=== PATIENT | male | born 1955 | race Caucasian/White ===

== ENCOUNTER 2018-01-02 17:10 | Observation (INO) ==
--- NOTE | 2018-01-02 17:39 | Emergency Department Note ---
Disposition Clinical Impression: DM hyperosmolarity type II, uncontrolled Disposition: Admitted As Inpatient Condition: Good Time of Disposition: 18:37 General Adult HPI - General Chief complaint: ED General Medical Stated complaint: Hyperglycemia Time Seen by Provider: 01/02/18 17:21 Source: patient Mode of arrival: ambulatory Limitations: no limitations Nursing Notes Reviewed: Yes Vital Signs Reviewed: Yes - History of Present Illness HPI Narrative: No patient presenting to emergency department complaining of hyperglycemia for the past 3 months. He states he does have a history of diabetes. He has not been taking any was medication for the past 2 weeks because he ran out of it. Patient states that he is not compliant with his diet he frequently eats chocolate as well as sugar doughnuts. Patient reports no other medical history. He states he has had a stress test that was negative. Patient denies any chest pain. He states his last episode of chest pain was 10 years ago. He denies any shortness of breath. He does report a mild suprapubic tenderness occasionally. He does have some mild suprapubic tenderness on exam. No right upper quadrant no right lower quadrant abdominal pain. He also reports one episode of emesis yesterday morning. None since. Denies any fevers or chills. - Related Data Home Medications Medication Instructions Recorded Confirmed RX: Multivit-Min/FA/Lycopen/Lutein 1 tab PO DAILY 01/03/18 01/03/18 [A Thru Z Select Multivit Tab] Previous Rx's Medication Instructions Recorded RX: Insulin NPH/REG 70/30 [HumuLIN 30 unit SQ BIDWM 14 Days #3 vial 01/03/18 70/30 VIAL] RX: Potassium Chloride 20 meq PO BID 3 Days #6 tab.er.prt 01/03/18 Allergies Allergy/AdvReac Type Severity Reaction Status Date / Time NSAIDS (Non-Steroidal Allergy Rash Verified 06/09/17 11:34 Anti-Inflamma All systems ED: reviewed and negative except as stated. Review of Systems: As Per HPI Constitutional: Denies: fever, chills Cardiovascular: Denies: chest pain, syncope Respiratory: Denies: cough, dyspnea Gastrointestinal: Reports: abdominal pain (Suprapubic.), vomiting (One episode yesterday nonbloody nonbilious). Denies: nausea, diarrhea Genitourinary: Reports: frequency (Increased). Denies: urgency, dysuria, hematuria Musculoskeletal: Denies: back pain, neck pain Past Medical History - Past Medical History Attestation: Yes The following information was validated with the patient. Source: patient Medical history: Reports: diabetes - Social History Smoking Status: 2nd Hand Smoke Exposure Smokeless Tobacco Status: No Alcohol use: Reports: none Physical Exam - General Limitations: no limitations General appearance: alert, in no apparent distress - Head Head exam: atraumatic, normocephalic, normal inspection - Eye Eye exam: Present: normal appearance, PERRL, EOMI - ENT ENT exam: normal exam, normal oropharynx, mucous membranes moist - Neck Neck exam: Present: normal inspection, full ROM, trachea midline - Chest Chest inspection: Present: normal inspection, symmetric chest wall rise - Respiratory Respiratory exam: Present: normal lung sounds bilaterally. Absent: respiratory distress, accessory muscle use - Cardiovascular Cardiovascular exam: Present: regular rate, normal rhythm, normal heart sounds - Abdominal Exam Abdominal exam: Present: soft, tenderness (Suprapubic to palpation.), other (Patient's abdomen is nondistended not peritoneal.). Absent: distention, guarding, rigidity, organomegaly - Extremities Exam Extremities exam: Present: normal inspection, full ROM, normal capillary refill. Absent: tenderness, pedal edema - Back Exam Back exam: Present: normal inspection, full ROM. Absent: tenderness - Neurological Exam Neurological exam: Present: alert, oriented X3 - Psychiatric Psychiatric exam: Present: normal affect, normal mood - Skin Skin exam: Present: warm, dry, intact, normal color Course Course Narrative: Patient splenic your glucose was noted to be high on our read. He is a known diabetic but has not been taking his medication and is not compliant with his diet. We will get a basic lab workup and anticipate the patient being admitted for possible DKA. We will also get a urinalysis to evaluate for his suprapubic tenderness and increased frequency of urination. He denies any burning on urination. - Reevaluation(s) Reevaluation #1: Patient has a new AK eye. Also has beta hydroxybutyrate acid that is greater than 2. Does not have an osmolar gap. Does have elevated serum osmole is 317. We did provide the patient with 10 units of subcutaneous insulin and 2 L of fluid. We will be admitting for hyperglycemia as well as RASHAD. Time: 18:35 - Consultations Consultation #1: Hospitalist accepted patient in stable condition. Time: 18:43 Vital Signs Temperature 97.7 F 01/02/18 17:12 Pulse Rate 89 01/02/18 17:12 Respiratory Rate 15 01/02/18 17:12 Blood Pressure 145/88 01/02/18 17:12 O2 Sat by Pulse Oximetry 98 01/02/18 17:12 Temperature 97.7 F 01/02/18 17:38 Pulse Rate 86 01/02/18 17:41 Respiratory Rate 16 01/02/18 17:41 Blood Pressure 119/94 01/02/18 17:41 O2 Sat by Pulse Oximetry 98 01/02/18 17:38 Oxygen Delivery Oxygen Delivery Room Air Medical Decision Making - Medical Records Medical records reviewed: Yes I reviewed the patient's medical records. - Lab Data Lab results reviewed: Yes I reviewed the patient's lab results. Result diagrams: 01/03/18 03:38 01/03/18 03:38 Lab Results 01/02/18 01/02/18 01/02/18 Range/Units 17:22 17:22 17:22 WBC 8.3 (4.3-11.1) K/mcL RBC 5.71 H (4.19-5.50) M/mcL Hgb 17.0 H (12.9-16.9) g/dL Hct 49.4 (37.5-50.1) % MCV 86.5 (83.0-100.0) fL MCH 29.8 (28.0-33.3) pg MCHC 34.4 (31.6-35.5) g/dL RDW 12.4 (11.5-14.5) % Plt Count 181 (140-400) K/mcL MPV 10.9 (9.4-12.4) fL Immature Gran % 0.2 (0-4) % Seg Neutrophils % 65.1 % Lymphocytes % 27.5 % Monocytes % 4.7 % Eosinophils % 1.8 % Basophils % 0.7 % Neutrophils # 5.4 (1.6-8.9) K/mcL Lymphocytes # 2.3 (0.6-4.6) K/mcL Monocytes # 0.4 (0.0-1.3) K/mcL Eosinophils # 0.2 (0.0-0.6) K/mcL Basophils # 0.1 (0.0-0.2) K/mcL VBG pH (7.32-7.42) pH Units VBG pCO2 (41-51) mmHg VBG pO2 (25-50) mmHg VBG HCO3 (21-27) mEq/L Sodium 134 L (136-145) mEq/L Potassium 4.1 (3.5-5.1) mEq/L Chloride 100 (98-107) mEq/L Carbon Dioxide 24 (23-29) mEq/L BUN 33 H (8-23) mg/dL Creatinine 1.57 H (0.70-1.30) mg/dL Est GFR ( Amer) 55 L (> 60) Est GFR (Non-Af Amer) 45 L (> 60) BUN/Creatinine Ratio 21 (6-26) Glucose 668 H* (70-105) mg/dL Calculated Osmolality 317 H (280-300) Lactic Acid (0.5-2.2) mmol/L Calcium 8.9 (8.6-10.3) mg/dL Phosphorus 3.2 (2.7-4.5) mg/dL Magnesium 2.4 (1.6-2.6) mg/dL Beta-Hydroxybutyric Acd > 2.00 H (0.02-0.27) mmol/L 01/02/18 01/02/18 Range/Units 17:48 18:09 WBC (4.3-11.1) K/mcL RBC (4.19-5.50) M/mcL Hgb (12.9-16.9) g/dL Hct (37.5-50.1) % MCV (83.0-100.0) fL MCH (28.0-33.3) pg MCHC (31.6-35.5) g/dL RDW (11.5-14.5) % Plt Count (140-400) K/mcL MPV (9.4-12.4) fL Immature Gran % (0-4) % Seg Neutrophils % % Lymphocytes % % Monocytes % % Eosinophils % % Basophils % % Neutrophils # (1.6-8.9) K/mcL Lymphocytes # (0.6-4.6) K/mcL Monocytes # (0.0-1.3) K/mcL Eosinophils # (0.0-0.6) K/mcL Basophils # (0.0-0.2) K/mcL VBG pH 7.37 (7.32-7.42) pH Units VBG pCO2 44 (41-51) mmHg VBG pO2 68 H (25-50) mmHg VBG HCO3 25 (21-27) mEq/L Sodium (136-145) mEq/L Potassium (3.5-5.1) mEq/L Chloride (98-107) mEq/L Carbon Dioxide (23-29) mEq/L BUN (8-23) mg/dL Creatinine (0.70-1.30) mg/dL Est GFR ( Amer) (> 60) Est GFR (Non-Af Amer) (> 60) BUN/Creatinine Ratio (6-26) Glucose (70-105) mg/dL Calculated Osmolality (280-300) Lactic Acid 1.2 (0.5-2.2) mmol/L Calcium (8.6-10.3) mg/dL Phosphorus (2.7-4.5) mg/dL Magnesium (1.6-2.6) mg/dL Beta-Hydroxybutyric Acd (0.02-0.27) mmol/L - Radiology Data Radiology results reviewed: Yes I reviewed the patient's radiology results. - EKG Data EKG #1 EKG attestation: Yes I reviewed and interpreted this EKG. EKG results narrative: Normal sinus rhythm at a rate 83. NC interval is 147. QRS duration is 93. QT is 400. QTC is 470. No signs of acute ischemia. Good R-wave progression. No significant change from previous EKG dated 06/27/2012. Attestation Statement - Attestation Attestation: Resident Attestation: I examined this patient and my medical decision making was reviewed with the Resident Physician. I agree with the documented findings, disposition and treatment plan as described except to the extent set forth below. We independently had [id number] contact with the patient. Patient seen with resident physician Dr. Charlotte Crowe. Please see resident note for further details and disposition. Patient presents with a history of hyperglycemia. He has not been taking his medication for the past 2 weeks. Patient has had significant polydipsia and polyuria. Generalized abdominal pain with an episode of nonbloody nonbilious emesis. No acute distress, abdomen soft nontender palpation without guarding or rebound. Patient found to have significant hyperglycemia as well as hyperosmolality. RASHAD. Not acidotic. Patient will be admitted for further treatment.
[2018-01-02] MEDS: 0.9 % Sodium Chloride 1,000 ML IVC SCH ×3 (17:53→22:52)
[2018-01-02 17:58] LABS: Basophils # 0.1 K/mcL (0.0-0.2); Basophils % 0.7 %; Eosinophils # 0.2 K/mcL (0.0-0.6); Eosinophils % 1.8 %; Hematocrit 49.4 % (37.5-50.1); Immature Granulocytes % 0.2 % (0-4); Lymphocytes # 2.3 K/mcL (0.6-4.6); Lymphocytes % 27.5 %; Mean Corpuscular HGB Conc 34.4 g/dL (31.6-35.5); Mean Corpuscular Hemoglobin 29.8 pg (28.0-33.3); Mean Corpuscular Volume 86.5 fL (83.0-100.0); Mean Platelet Volume 10.9 fL (9.4-12.4); Monocytes # 0.4 K/mcL (0.0-1.3); Monocytes % 4.7 %; Neutrophils # 5.4 K/mcL (1.6-8.9); Platelet Count 181 K/mcL (140-400); Red Blood Count 5.71 M/mcL (4.19-5.50); Red Cell Distribution Width 12.4 % (11.5-14.5); Segmented Neutrophils % 65.1 %
[2018-01-02 18:15] LABS: VBG HCO3 25 mEq/L (21-27); VBG PCO2 44 mmHg (41-51); VBG PH 7.37 pH Units (7.32-7.42); VBG PO2 68 mmHg (25-50)
[2018-01-02 18:20] LABS: Calcium 8.9 mg/dL (8.6-10.3); Magnesium 2.4 mg/dL (1.6-2.6); Phosphorous 3.2 mg/dL (2.7-4.5); Potassium 4.1 mEq/L (3.5-5.1)
[2018-01-02] MEDS ORDERED: Insulin Regular, Human 100 UNIT/ML SQ ONE (18:34)
[2018-01-02 19:06] LABS: Bilirubin,Urine Negative (Negative); Blood,Urine Negative (Negative); Clarity,Urine Clear (Clear); Color,Urine Yellow (Yellow); Glucose,Urine (UA) >=1000 mg/dL (Normal); Ketones,Urine 15 mg/dL (Negative); Leukocyte Esterase,Urine Negative (Negative); Nitrite,Urine Negative (Negative); PH,Urine 5.5 pH Units (5.0-8.0); Protein,Urine Negative (Neg-Trace); Specific Gravity,Urine > 1.030 (1.010-1.025); Urobilinogen,Urine Normal (Normal)
[2018-01-02] MEDS ORDERED: Insulin LISPRO 300 UNITS/3 ML VIAL SQ ONE (19:45)
[2018-01-02] MEDS ORDERED: Naloxone 0.4 MG/ML INJ IVP PRN (21:36)
[2018-01-02] MEDS ORDERED: D5% in Water 1,000 ML IVC PRN (21:47)
[2018-01-02] MEDS ORDERED: *HR* Dextrose 50 % in Water (Syg) 50 ML SYRINGE IVP PRN (21:47)
[2018-01-02] MEDS ORDERED: Dextrose Gel 15 GM/37.5 ML TUBE PO PRN ×2 (21:47)
--- NOTE | 2018-01-02 21:48 | Internal Med History&Physical ---
Addendum entered and electronically signed by Oumar Lawler MD 01/03/18 05:53: I saw and evaluated the patient. I reviewed the residents note, performed my own physical examination and agree with findings and plan as documented in the residents note. Patient seen and examined on 01/02/18. Patient presented with elevated blood sugars, poorly controlled at home. Is not on insulin, but has been on glimepiride. Has not been taking it the past few weeks however. He states that he gets leg cramps and vision changes when his sugars are elevated. Since starting the IV fluids and receiving the insulin, he feels better. We will continue to monitor, and most likely recommend insulin at discharge. Would also benefit from diabetes education as well, but this service is not available at this facility. Original Note: Date of Encounter: 01/03/18 Time of Encounter: 21:36 Internal Medicine - H&P: HPI Chief complaint: hyperglycemia Admitted From: Emergency Dept Plans for Post Hospital Care: Home History of present illness: Mr. Henriquez is a 62 year old male with history of diabetes who presents to the hospital for 3 month history of hyperglycemia. The patient states that he has been having elevated blood glucose for the past 3 months but is been particularly bad over the past couple weeks. He states that he has been noncompliant with his medication because he ran out and has not sought a refill from his primary care physician. He previously was on metformin, however he was unable to tolerate it due to adverse effects and was switched to glimepiride i [facility]. He says over the past several months his blood glucose has never dropped below 300 but over the past couple of weeks and greater than 600 for the most part. As result of this, he says that he has been having dark spots in his vision as well as floaters, as well as severe polyuria and polydipsia. He additionally admits to polyphagia and nausea and vomiting over the past several days. Very concerned about weight loss which has been unplanned in the past couple of weeks. He claims that he has had about 15 pounds of unexpected weight loss in the past 2 weeks. He does admit to feeling chilled but denies fever or night sweats. His review of systems also elicited a general state of c onstipation recently, however he denies blood in his stool or melena. He also had apparently has a personal history of colonic polyps. He has no other acute symptoms at this time. In the ED, the patient was found to have a blood glucose of 668, with a hydroxybutyric acid of >2.0 and without an anion gap. His serum osmolality was 318. His lactic acid was 1.2. He was admitted for workup and management of acute hyperglycemia. Social Hx: Patient lives alone, works in a factory doing packing, denies current tobacco use but is a former smoker, denies EtOH use, denies drug use, admits to poor diet. Surgical Hx: non-contributory Family Hx: Mother had heart disease, father had diabetes Past Med Surg Social Fam HX - Past Medical History Medical history: diabetes Additional medical history: see attached records Psychiatric history: no psych history - Social History Smoking Status: 2nd Hand Smoke Exposure Smokeless Tobacco Status: No Alcohol use: none Drug use: none - Family History Father Hx Family Endocrine Disorder: Yes Internal Medicine - H&P: Meds Magnesium 01/02/18 [History] Potassium 01/02/18 [History] Allergy/AdvReac Type Severity Reaction Status Date / Time NSAIDS (Non-Steroidal Allergy Rash Verified 06/09/17 11:34 Anti-Inflamma All Systems PM: A 10-system review of systems was performed and is negative for pertinent findings except as documented above in the HPI. Review of systems: Constitutional: Denies fevers, generalized fatigue. Admits to chills, 15 pound weight loss in 3 weeks Head/Neck: Denies GALAN, neck stiffness EENT: Denies rhinorrhea, congestion. Admits to sore throat, visual blurriness CVS: Denies chest pain, palpitations, HARO, orthopnea, edema, PND Pulm: Denies SOB, sputum, hemoptysis, wheezing GI: Denies diarrhea, melena, hematemasis. Admits to abdominal pain, and episodes of nausea and vomiting, constipation : Denies dysuria, urgency, hematuria Endo: Admits to polydipsia and polyuria Heme: Denies ease of bleeding or bruising MSK: Denies joint pain, limited ROM Skin: Denies rashes, ulcers, color changes Neuro: Denies GALAN, paresthesias, focal deficits, ataxia - Constitutional Vitals: Temp Pulse Resp BP Pulse Ox 97.7 F 72 16 140/97 98 01/02/18 17:38 01/02/18 20:15 01/02/18 21:21 01/02/18 21:21 01/02/18 17:38 Exam: Gen: Vitals noted. No acute distress. Eyes: anicteric sclerae, moist conjunctivae; no lid-lag; Pupils equal and reactive to light HENT: Atraumatic; oropharynx clear with moist mucous membranes and no mucosal ulcerations; normal hard and soft palate Neck: Trachea midline; supple, no thyromegaly or lymphadenopathy Cardiac: RRR, no murmur, +S1/S2 Pulmonary: CTA bilaterally, no wheezes, rales or rhonchi, equal chest expansion Abdomen: soft, mild tenderness to palpation especially in suprapubic region, no guarding. No masses or hepatosplenomegaly MSK: ROM intact, no joint swelling noted Extremities: no BLE edema, nontender calf, no cyanosis or clubbing Skin: Normal temperature, turgor and texture; no rash, ulcers or subcutaneous nodules Neuro: moves all extremities, no focal deficits. Psych: Appropriate mood and behavior. A&Ox3 Internal Med - H&P Results - Labs CBC & Chem 7: 01/03/18 03:38 01/03/18 03:38 Labs: Short CBC 01/02/18 Range/Units 17:22 WBC 8.3 (4.3-11.1) K/mcL Hgb 17.0 H (12.9-16.9) g/dL Hct 49.4 (37.5-50.1) % Plt Count 181 (140-400) K/mcL Neutrophils # 5.4 (1.6-8.9) K/mcL BMP 01/02/18 17:22 Sodium 134 L Potassium 4.1 Chloride 100 Carbon Dioxide 24 BUN 33 H Creatinine 1.57 H Glucose 668 H* Calcium 8.9 Urine 01/02/18 Range/Units 18:55 Urine Color Yellow (Yellow) Urine Clarity Clear (Clear) Urine pH 5.5 (5.0-8.0) pH Units Ur Specific [place] > 1.030 H (1.010-1.025) Urine Protein Negative (Neg-Trace) mg/dL Urine Glucose (UA) >=1000 H (Normal) mg/dL - ABG Interpretation ABG results: 01/02/18 18:09 VBG pH 7.37 VBG pCO2 44 VBG pO2 68 H VBG HCO3 25 - Assessment and plan (1) DM hyperosmolarity type II, uncontrolled Current Visit: Yes Status: Acute Assessment and plan: Poorly controlled DM2 with HHS Serum Glucose on arrival 668, Osmolality 317 Patient has been experiencing elevated glucose for several months and is not taking meds He also appears to be symptomatic with polydypsia, polyuria, polyphagia, and visual disturbances The patient's most recent A1C in [facility] was from 10/24 and was 8.6% He received 20U sq insulin in the ED and glucose dropped to 300s Plan We will give 22u Levemir tonight, low dose sliding scale insulin Start diabetic diet, educate on appropriate diabetes management Aggressive fluid volume replacement with 2L NS total bolus followed by 125mL/hr NS Maintenance fluids Accuchecks ACHS (2) RASHAD (acute kidney injury) Current Visit: Yes Status: Acute Assessment and plan: Acute kidney injury, no known history of CKD Serum creatinine 1.57, eGFR 33 Likely prerenal in the setting of HHS and moderate hypovolemia Continue with aggressive volume replacement Recheck BMP in the AM (3) Muscle cramps Current Visit: Yes Status: Acute Assessment and plan: Myalgias secondary to dehydration (4) Weight loss, unintentional Current Visit: Yes Status: Acute Assessment and plan: Patient endorses substantial unintentional weight loss ECW does not personal history of colonic polyps, and patient also mentions constipation and chills on review of systems Last known colonoscopy is unknown Will likely require follow-up outpatient (5) DVT prophylaxis Current Visit: Yes Status: Acute Assessment and plan: SQ Heparin - Time Spent With Patient Total time spent is greater than 50% in coordination of care (as documented) at patient's floor/unit and/or counseling patient:
[2018-01-02] MEDS ORDERED: Insulin DETEMIR 100 UNIT/ML X5UNITS SQ SCH (22:00)
[2018-01-02] MEDS ORDERED: 0.9 % Sodium Chloride 1,000 ML IVC ONE (22:15)
[2018-01-03 04:00] LABS: Basophils # 0.1 K/mcL (0.0-0.2); Basophils % 0.7 %; Eosinophils # 0.3 K/mcL (0.0-0.6); Eosinophils % 4.1 %; Hematocrit 42.5 % (37.5-50.1); Immature Granulocytes % 0.1 % (0-4); Lymphocytes % 41.6 %; Mean Corpuscular HGB Conc 33.9 g/dL (31.6-35.5); Mean Corpuscular Hemoglobin 29.7 pg (28.0-33.3); Mean Corpuscular Volume 87.6 fL (83.0-100.0); Mean Platelet Volume 10.5 fL (9.4-12.4); Monocytes # 0.4 K/mcL (0.0-1.3); Neutrophils # 3.5 K/mcL (1.6-8.9); Platelet Count 155 K/mcL (140-400); Red Blood Count 4.85 M/mcL (4.19-5.50); Red Cell Distribution Width 12.3 % (11.5-14.5); Segmented Neutrophils % 48.5 %
[2018-01-03 04:01] LABS: Hemoglobin 14.4 g/dL (12.9-16.9)
[2018-01-03 04:15] LABS: Alanine Aminotransferase 20 Units/L (7-52); Albumin 3.1 g/dL (3.5-5.7); Albumin/Globulin Ratio 1.4 (1.1-2.2); Alkaline Phosphatase 54 Units/L (34-104); Aspartate Amino Transferase 13 Units/L (13-39); BUN/Creatinine Ratio 22 (6-26); Bilirubin,Indirect 0.6 mg/dL (0.0-1.2); Bilirubin,Total 0.6 mg/dL (0.3-1.0); Blood Urea Nitrogen 22 mg/dL (8-23); Calcium 7.7 mg/dL (8.6-10.3); Carbon Dioxide 25 mEq/L (23-29); Chloride 110 mEq/L (98-107); Chol/HDL Ratio 4.2 (0-4.9); Cholesterol 109 mg/dL (< 200); Globulin 2.2 g/dL (2.4-3.5); Glucose 215 mg/dL (70-105); HDL Cholesterol 26 mg/dL (40-59); LDL Cholesterol,Calculated 66 mg/dL (0-99); Osmolality,Calculated 298 (280-300); Potassium 3.2 mEq/L (3.5-5.1); Sodium 139 mEq/L (136-145); Total Protein 5.3 g/dL (6.4-8.9); Triglycerides 86 mg/dL (< 150); eGFR For Non-African Americans > 60 (> 60)
[2018-01-03] MEDS: Insulin LISPRO 300 UNITS/3 ML VIAL SQ SCH ×2 (07:22→11:43)
[2018-01-03] MEDS: 0.9 % Sodium Chloride 1,000 ML IVC SCH (07:23)
[2018-01-03 08:18] LABS: Estimated Average Glucose 384 mg/dl
--- NOTE | 2018-01-03 10:32 | Discharge Summary ---
<Sameer Skinner - Last Filed: 01/03/18 13:50> - NOTES TO OUTPATIENT PROVIDER Notes to Outpatient Provider: Follow up outpatient in the next 3 days with PCP for medication management and re-evauation. Follow up with gastroenterology in 4-6 weeks for colonoscopy. Optho follow up outpatient Date of Encounter: 01/03/18 Time of Encounter: 12:16 - Discharge Diagnosis (1) DM hyperosmolarity type II, uncontrolled Priority: Primary Status: Acute (2) Visual disturbance Priority: Secondary Status: Chronic (3) Weight loss, unintentional Priority: Secondary Status: Acute (4) RASHAD (acute kidney injury) Priority: Secondary Status: Acute Hospital course: Mr. Henriquez is a 62 year old male with history of uncontrolled NIDDM2 who was admitted on 01/02/18 for diabetic hyperglycemia hyperosmolarity syndrome and acute kidney injury. Patient reported that he had one week history of polydypsia and polyuria with fifteen pount weight loss ove the past month. Patient was noted to have stopped his at home diabetic regimen due to lapse in primary care providers and presented to the emergency department with glucose of 668, found to be hypokalemic at 3.0, elevated serum osmolarity, normal anion gap, was not acidotic on VBG. Patient was found to have acute kidney injury with creatinine of 1.57. Patient was given insulin the emergency department and started on fluids. His potassium was replaced. Patient has remained afebrile with normal vital signs throughout admission. Overall, patient has improved overall, has been fluid responsive with creatinine 1.02 today, glucose with SSI and levemir regimen 142. Patient has been tolerating oral feed well. Patient had diabetic counseling provided. Patient will be discharged with insulin regimen as follows insulin 70/30, 30 units twice per day. Instructed to monitor glucose throughout the day. Potassium replacement written for home. Outpatient recheck of K recommended. Outpatient primary care follow up with residency clinic was setup for patient. Optho outpatient follow up recommended for visual and retinal examination. Colonoscopy and gastroenterology outpatient follow up recommended. Patient is agreeable and understands discharge instructions. Discharge discussed with: patient - Time Spent with Patient Total time spent providing and/or coordinating discharge services: Less than 30 minutes - Discharge Medications Prescriptions: Insulin NPH/REG 70/30 [HumuLIN 70/30 VIAL] 30 unit SQ BIDWM 14 Days #3 vial Potassium Chloride 20 meq PO BID 3 Days #6 tab.er.prt Home Medications: Insulin NPH/REG 70/30 [HumuLIN 70/30 VIAL] 30 unit SQ BIDWM 14 Days #3 vial 01/03/18 [Rx] Multivit-Min/FA/Lycopen/Lutein [A Thru Z Select Multivit Tab] 1 tab PO DAILY 01/03/18 [History] Potassium Chloride 20 meq PO BID 3 Days #6 tab.er.prt 01/03/18 [Rx] Allergies/Adverse Reactions: Allergy/AdvReac Type Severity Reaction Status Date / Time NSAIDS (Non-Steroidal Allergy Rash Verified 06/09/17 11:34 Anti-Inflamma Date of admission: 01/02/18 21:01 Primary care physician: Adolfo Dawson Discharging clinician: Sameer Skinner Anticipated date of discharge: 01/03/18 - Constitutional Vitals: Temp Pulse Resp BP Pulse Ox 98.6 F 73 16 126/85 97 01/03/18 03:43 01/03/18 07:09 01/03/18 07:09 01/03/18 07:09 01/03/18 07:09 Exam: Gen: Vitals noted. No acute distress. Eyes: anicteric sclerae, moist conjunctivae; Pupils equal and reactive to light HENT: Atraumatic; oropharynx clear with moist mucous membranes and no mucosal ulcerations; normal hard and soft palate Neck: Trachea midline; supple, no thyromegaly or lymphadenopathy Cardiac: RRR, no murmur, +S1/S2 Pulmonary: CTA bilaterally, no wheezes, rales or rhonchi, equal chest expansion Abdomen: soft, no guarding. No masses or hepatosplenomegaly MSK: ROM intact, no joint swelling noted Extremities: no BLE edema, nontender calf, no cyanosis or clubbing Skin: Normal temperature, turgor and texture; no rash, ulcers or subcutaneous nodules Neuro: moves all extremities, no focal deficits. Psych: Appropriate mood and behavior. A&Ox3 - Patient Status Disposition: Home, Self-Care Condition: Good Overall status at discharge: patient is back to baseline - Discharge Instructions Instructions: Diabetes Mellitus Type 2 in Adults (DC) Follow Up With: Adolfo Dawson MD [Primary Care Provider] - 01/09/18 4:00 pm Liliana Cronin MD [Partnered Physician] - (sent web request on 01-03-18 @ [id number]) Additional Instructions: Please take your insulin as prescribed. If unable to take insulin for any reason please call your primary care provider and obtain prescription for oral agents. - Diet and Activity Activity: increase activity as tolerated Diet: diabetic diet <Martín Hanson - Last Filed: 01/03/18 14:29> Date of Encounter: 01/03/18 Time of Encounter: 14:27 Hospital course: Mr. Henriquez is a 62 year old male Discharge discussed with: patient - Time Spent with Patient Total time spent providing and/or coordinating discharge services: Less than 30 minutes (8 min) Date of admission: 01/02/18 21:01 Primary care physician: Adolfo Dawson Consults: 01/03/18 12:21 Consult to Diabetes Education [CONS] Stat Comment: Reason for Consult: hyperglycemia with history of DM2, will be discharged on insulin which is new medication for him - Constitutional Vitals: Temp Pulse Resp BP Pulse Ox 98.5 F 70 18 153/88 98 01/03/18 11:36 01/03/18 11:36 01/03/18 11:36 01/03/18 11:36 01/03/18 11:36 General appearance: Present: cooperative, A&O X 3, answers questions ap propriately - Respiratory Respiratory exam: Present: CTAB. Absent: accessory muscle use, rales, rhonchi, wheezes - Cardiovascular Cardiovascular exam: Present: RRR, +S1, +S2. Absent: diastolic murmur, gallop, rubs, systolic murmur - GI/Abdominal GI/Abdominal exam: Present: normal bowel sounds, soft, no peritoneal signs. Absent: distended, tenderness - Extremities Exam Extremities exam: Present: warm, radial pulses palpable and symmetrical. Absent: calf tenderness, cyanotic, pedal edema - Attending Attestation I saw evaluated and examined this patient and my medical decision-making was reviewed with the Resident Physician, Sameer Skinner. I agree with the documented findings, disposition and treatment plan as described except to any changes set forth below. We independently had [id number] contact with the patient. Patient hospitalized here for her hyperosmolar hyperglycemic state and acute kidney injury. He had not been taking his anti-glycemic medications for about a month now during which time his also had significant weight loss. On arrival to the ED, his blood glucose was found to be 668. He was given IV fluids and IV insulin and his blood sugars slowly improved. They have now been better controlled and he is tolerating oral diet well. At this time is stable to be discharged home. His renal function has normalized. His A1c was 15. As such I recommend that he be started on insulin. He is being given a prescription for insulin 70/30; 30 units twice daily. He will follow up with his primary care provider for further management.
[2018-01-03] MEDS ORDERED: Acetaminophen 325 MG TABLET PO PRN (10:38)
[2018-01-03 11:39] VITALS: BP 153/88
--- NOTE | 2018-01-03 14:15 | Electrocardiograph Report ---
[place] [address] Test Date: 2018-01-02 Pat Name: Oumar Henriquez Department: EXAM9 Room: 2N13 Gender: M Services Manager: : [id number] Requested By: Charlotte Crowe Order Number: [id number] Reading MD: Moraima Kidd Measurements Intervals [place] Rate: 83 P: -34 SC: 147 QRS: 16 QRSD: 93 T: 16 QT: 400 QTc: 470 Interpretive Statements Sinus rhythm Electronically Signed On 01-03-2018 14:13:35 EST by Moraima Kidd
[2018-01-03] MEDS ORDERED: Insulin LISPRO 300 UNITS/3 ML VIAL SQ SCH (21:00)
== END 2018-01-03 15:55 | disposition home or self-care (01) ==
LOC: 2NNU 17:10 → EMEROOARM 17:10 → 2NNU 21:34
PROVIDERS: ADMIT Internal Medicine Cardiovascular Disease; ATTEND Internal Medicine Cardiovascular Disease